=== PATIENT | male | born 1955 | race Caucasian/White ===

== ENCOUNTER → 2016-12-25 | Outpatient (CLI) | payer BC, OTHER ==
--- NOTE | 2016-12-25 10:13 | DI ---
MRI LUMBAR SPINE SCAN WITHOUT IV CONTRAST, 12/25/2016 9:00 AM: Clinical History: Acute right-sided low back pain with right sided sciatica. Previous Exam: None. Technique: Sagittal and axial T2 weighted; sagittal T1 weighted and T2 STIR; and axial PD. The vertebral bodies are of normal height and size. Severe disc space narrowing is present at L1-2, L 2-3, and L5-S1 with mild narrowing at L3-4 and L4-5. There is a grade 2 spondylolisthesis at L5-S1 wi th bilateral pars defects at L5. The cord terminates at T12 and the conus medullaris is normal. The T 11-12 disc space is normal. There is a bulging but not herniated disc without canal or neural foramin al stenosis at T12-L1. There is more prominence on the left side than the right and there is also lef t-sided disc annulus tear. L1-2 and L2-3 both have prominent bulging but not herniated discs without canal or significant neural foraminal stenosis. L3-4 has a mild circumferentially bulging but not her niated disc without canal or neural foraminal stenosis. L4-5 has a grade 1 reverse spondylolisthesis with a bulging but not herniated disc. There is no canal or neural foraminal stenosis. Moderate hyper trophic changes of both apophyseal joints are present. L5-S1 has severe spinal canal stenosis seconda ry to the grade 2 spondylolisthesis and hypertrophic changes of the apophyseal joints and ligamentum flavum as well as the hypertrophic changes at the site of both pars defects. There is no significant neural foraminal stenosis. Readin. Severe spinal canal stenosis at L5-S1 secondary to a bulging but not herniated disc, a grade 2 sp ondylolisthesis, and hypertrophic changes of the ligamentum flavum as well as the apophyseal joints a nd the site of both pars defects. There is no significant neural foraminal stenosis. 2. There are bulging but not herniated discs without canal or significant neural foraminal stenosis from T12 L1-L4 5. There is a grade 1 reverse spondylolisthesis at L4-5. T12-L1 has a disc annulus tea r on the left side with an associated prominent disc bulge. 3. The T11-12 disc spaces normal.
== END ==
LOC: MRI 08:57
PROVIDERS: ATTEND Nurse Practitioner Family
DX: M54.41 Lumbago with sciatica, right side (principal); M47.27 Other spondylosis with radiculopathy, lumbosacral region; M43.17 Spondylolisthesis, lumbosacral region; M47.814 Spondylosis without myelopathy or radiculopathy, thoracic region
CPT/HCPCS: 72148

== ENCOUNTER → 2016-12-28 | Outpatient (CLI) | payer BC ==
--- NOTE | 2016-12-28 10:08 | DI ---
PA /LATERAL CHEST X-RAY, 12/28/2016 9:17 AM : Clinical History: Chest congestion. Previous Exam: None at this facility. There is no acute soft tissue or bony abnormality. Heart size is normal. There is a right middle lobe pneumonia involving primarily the medial segment. No pleural effusion is present. Mediastinal struct ures are normal. There are no pulmonary nodules. Reading: Right middle lobe pneumonia.
== END ==
LOC: MOB RAD 09:33
PROVIDERS: ATTEND Nurse Practitioner Family
DX: R05 Cough (principal); J18.9 Pneumonia, unspecified organism
CPT/HCPCS: 71020

== ENCOUNTER 2017-07-16 11:30 | Inpatient (IN) ==
[~2017-07-16 11:30] MED LIST: BUPivacaine Liposome/PF (Exparel) Inj 20ml vial INFIL ONE; Ketorolac Inj 30 MG, Morphine Inj 5 MG, BUPivacaine Inj 0.25% PF 150 MG SPLASH ONE; Lactated Ringers 1,000 ML PRIMARY IV SCH; Tranexamic Acid 1,000 MG in Sodium Chloride 0.9% 100 ML IV SCH; ceFAZolin Inj 2gm (Premix) 2 GM/50 ML BAG IV ONE
[2017-07-22] MEDS ORDERED: Tranexamic Acid 1,000 MG in Sodium Chloride 0.9% 100 ML IV SCH (06:00)
[2017-07-22] MEDS ORDERED: LIDOCAINE W/ SODIUM BICARB 0.5 ML SYR ONE (06:18)
[2017-07-22] MEDS ORDERED: Lactated Ringers 1,000 ML PRIMARY IV ONE ×4 (06:18→16:04)
[2017-07-22] MEDS ORDERED: ceFAZolin Inj 2gm (Premix) 2 GM/50 ML BAG IV ONE ×2 (06:18→08:45)
[2017-07-22] MEDS ORDERED: HEPARIN 10,000 UNIT/1 ML ONE (07:36)
[2017-07-22] MEDS ORDERED: Gentamicin Inj 40 MG/ML VIAL ONE (07:37)
[2017-07-22] MEDS ORDERED: Sodium Chloride 0.9% 500 ML ONE ×2 (07:41→16:34)
[2017-07-22] MEDS ORDERED: Sodium Chloride 0.9% 2,000 ML ONE (07:41)
[2017-07-22] MEDS ORDERED: BUPivacaine Liposome/PF (Exparel) Inj 20ml vial INFIL ONE ×2 (08:46→11:56)
[2017-07-22 10:31] LABS: BILIRUBIN,URINE NEGATIVE (NEG); CLARITY,URINE CLEAR (CLEAR); COLOR,URINE YELLOW; GLUCOSE, URINE (UA) NEGATIVE (NEG); NITRATE,URINE NEGATIVE (NEG); OCCULT BLOOD,URINE NEGATIVE (NEG); PROTEIN,URINE NEGATIVE (NEG); UROBILINOGEN,URINE 0.2 mg/dL (0.2)
[2017-07-22] MEDS: LIDOCAINE W/ SODIUM BICARB 0.5 ML SYR SUBD ONE (10:37)
[2017-07-22] MEDS: Lactated Ringers 1,000 ML PRIMARY IV SCH ×2 (10:37→19:43)
[2017-07-22] MEDS ORDERED: ceFAZolin Inj 3 GM in Sodium Chloride 0.9% 100 ML IV ONE (11:30)
[2017-07-22] MEDS ORDERED: TRANEXAMIC ACID 1,000 MG / 10 ML VIAL ONE (11:52)
[2017-07-22] MEDS ORDERED: Sodium Chloride 0.9% 200 ML IV ONE (11:53)
[2017-07-22] MEDS ORDERED: Sodium Chloride 0.9% vial 40 ML ONE (11:56)
[2017-07-22] MEDS ORDERED: Ketorolac Inj 30 MG, Morphine Inj 5 MG, BUPivacaine Inj 0.25% PF 150 MG SPLASH ONE ×3 (12:00)
[2017-07-22] MEDS ORDERED: PROPOFOL 10 MG/1 ML (200 MG/20 ML) VIAL IV ONE (12:11)
[2017-07-22] MEDS ORDERED: LIDOCAINE MPF 2% - 5 ML (20 MG/1 ML) ONE (12:11)
[2017-07-22] MEDS ORDERED: MIDAZOLAM 5 MG/1 ML ONE (12:12)
[2017-07-22] MEDS ORDERED: ROCURONIUM 10 MG/1 ML - 5 ML VIAL IVP ONE ×3 (12:12→14:44)
[2017-07-22] MEDS ORDERED: fentaNYL Inj 250 MCG/5 ML VIAL ONE ×2 (12:12→14:16)
[2017-07-22 12:27] LABS: URINE SAMPLE TYPE CLEAN CATCH URINE
[2017-07-22] MEDS ORDERED: Acetaminophen 1000mg Inj 1,000 MG/100 ML VIAL IV ONE (12:35)
[2017-07-22] MEDS ORDERED: ePHEDrine Inj 50 MG/ML AMP ONE (14:18)
[2017-07-22] MEDS ORDERED: SUGAMMADEX SODIUM 200 MG/2 ML VIAL IV ONE (16:04)
[2017-07-22] MEDS ORDERED: KETOROLAC 30 MG/1 ML VIAL ONE (16:04)
[2017-07-22] MEDS ORDERED: HYDROmorphone 2 MG/1 ML ONE (16:23)
--- NOTE | 2017-07-22 16:59 | CRNA.PROGR ---
Anesthesia Time - - Start date: 07/22/17 End date: 07/22/17 - Procedure/Recovery Time Anesthesia : Time In: 12:48 Anesthesia : Time Out: 16:59 Anesthesia : Total Time: 251 - Total Anesthesia Time Total Anesthesia Time (minutes): 251 - Other Weight: 118.841 kg Height: 6 ft Body Mass Index (BMI): 35.5 Physical Status: P2 Anesthesia Type: General Anesthesia : ET
[2017-07-22] MEDS ORDERED: ONDANSETRON 4 MG/2 ML VIAL IVP PRN ×2 (17:00→17:52)
[2017-07-22] MEDS ORDERED: NORMAL SALINE 10 ML SYRINGE FLUSH IVP PRN ×2 (17:00→17:52)
[2017-07-22] MEDS ORDERED: HYDROmorphone 2 MG/1 ML IVP PRN ×2 (17:00→17:52)
--- NOTE | 2017-07-22 17:00 | CRNA.PROGR ---
Anesthesia Recovery Phase I - Post Anesthesia Evaluation Patient's Condition on Arrival in Phase I: Stable Pain Level: 0
[2017-07-22] MEDS ORDERED: ACETAMINOPHEN 325 MG TABLET PO PRN (17:52)
[2017-07-22] MEDS ORDERED: BISACODYL 10 MG SUPPOSITORY RECTAL PRN (17:52)
[2017-07-22] MEDS ORDERED: MAG HYDROX/AL HYDROX/SIMETH 30 ML SUSP PO PRN (17:52)
[2017-07-22] MEDS ORDERED: diphenhydrAMINE 25 MG CAPSULE PO PRN (17:52)
[2017-07-22] MEDS ORDERED: Ondansetron ODT Tab 8 MG TAB PO PRN (17:52)
[2017-07-22] MEDS ORDERED: CALCIUM CARBONATE 500 MG (TUMS) CHEWABLE TABLET PO PRN (17:52)
[2017-07-22] MEDS ORDERED: Prochlorperazine Tab 10 MG TAB PO PRN (17:52)
--- NOTE | 2017-07-22 18:01 | CONSULT ---
Consult Note - Consult Consult Date: 07/22/17 Reason for Consult: PostOp Consulation : Ortho Requesting Physician: Dr. Barboza Primary Care Provider: Michael Sims MD - History of Present Illness History of Present Illness: This is a 61 years old male with medical history significant for history of hypertension, hypothyroidism and osteoarthritis of the right hip who came into the hospital to have surgery and was done today by Dr. Barbzoa the hospitalist service were consulted for management of medical issues. The patient was seen postoperatively he is denying symptoms. There is no chest pain , no shortness of breath, no nausea. No pain. Past Medical History Medical History: 1. Hypertension. 2. Hypothyroidism. 3. History of colonic polyps Surgical History: 1. History of lumbar fusion. 2. History of polypectomy Family History: Reviewed an Not Pertinent Past Social History: Doesn't drink, doesn't smoke, no drugs. Tobacco Use: Never Smoker In the Past 12 Months, Have Used or Abuse Any of the Following Substance: None Alcohol Use: None Review of Systems - Review of Systems All Systems: Reviewed & No Additional Complaints Except as Stated Medication / Allergies Home Medications: Home Medications Medication Instructions Recorded Confirmed Type Levothyroxine Sodium [Synthroid] 200 mcg ORAL QD #90 tab 06/27/16 07/22/17 Rx Lisinopril/Hydrochlorothiazide 1 tab PO QD #90 tab 06/27/16 07/22/17 Rx [Lisinopril-Hctz 20-25 Mg Tab] Allergies/Adverse Reactions: Allergies 3 Allergy/AdvReac Type Severity Reaction Status Date / Time No Known Allergies Allergy Verified 07/22/17 18:15 Exam - Vitals Vital Signs: Vital Signs Temperature 97.1 F Pulse Rate 83 Respiratory Rate 12 Blood Pressure 142/77 Pulse Ox 97 Oxygen Flow Rate 2 liters nasal cannula Height 6 ft Weight 262 lb - General General Appearance: No Acute Distress, Cooperative, Obese - Head Head Exam: Normal Inspection, Atraumatic - Eye Eye Exam: POSITIVE: Normal Appearance - ENT ENT Exam: POSITIVE: Normal Exam - Neck Neck Exam: Normal Inspection - Respiratory Respiratory Exam: POSITIVE: Clear to Auscultation - Bilaterally - Cardiovascular Cardiovascular Exam: POSITIVE: RRR - GI/Abdominal GI/Abdominal Exam: POSITIVE: Normal Bowel Sounds, Non Tender, Non Distended, Soft, No Organomegaly - Rectal Rectal Exam: POSITIVE: Deferred - External Exam: POSITIVE: Deferred - Extremities Additional Extremities Exam Details: No edema dressing applied to the right hip. - Back Back Exam: POSITIVE: Normal Inspection - Neurological Neurological Exam: POSITIVE: Alert, Oriented x 3, CN II-XII Intact, No Facial Droop - Psychiatric Psychiatric Exam: POSITIVE: Normal Affect Assessment and Plan - Patient Problems (1) Status post right hip replacement Current Visit: Yes Status: Acute Comment: Management per Dr. Barboza. Pain medication were written, anti- emetics and for DVT prophylaxis he put him on aspirin. Code(s): Z96.641 - Presence of right artificial hip joint (2) Hypothyroidism Current Visit: Yes Status: Acute Comment: Continue same medications Code(s): E03.9 - Hypothyroidism, unspecified (3) Hypertension Current Visit: Yes Status: Acute Comment: I think we'll hold off on restarting his blood pressure medication for now we'll see what his numbers in the morning and then will decide if we restart his medications. depending on his blood pressure numbers we may just restart the hydrochlorothiazide and hold off on restarting the lisinopril tomorrow. Code(s): I10 - Essential (primary) hypertension
--- NOTE | 2017-07-22 19:07 | ORTHO.PROG ---
Last Taken Vital Signs: Vital Signs - Last Taken Temperature 97.1 F 07/22/17 17:55 Pulse Rate 75 07/22/17 17:55 Respiratory Rate 18 07/22/17 17:55 Blood Pressure 134/76 07/22/17 17:55 Pulse Ox 92 07/22/17 17:55 Subjective: Patient doing well has no right hip pain Objective: Dressing is clean and dry drain has put out 15 mL so far. Suction superficial dressing in place working well. Motor and sensory exam is nonfocal with good motion of the foot and ankle. Radiographs of the hip show a femoral and acetabular component in place with no evidence of active issues leg lengths look good. Vital Signs (24 hrs) Temp Pulse Pulse Pulse Resp BP BP 07/22/17 17:55 97.1 F 80 75 18 134/76 07/22/17 17:35 85 12 136/80 07/22/17 17:25 83 12 142/77 07/22/17 17:15 97.1 F 77 12 120/74 07/22/17 17:10 76 12 132/83 07/22/17 17:00 78 12 124/73 07/22/17 16:55 78 12 120/70 07/22/17 16:50 97.5 F 77 12 123/71 07/22/17 10:46 97 F 66 18 128/82 Pulse Ox 07/22/17 17:55 92 07/22/17 17:35 97 07/22/17 17:25 97 07/22/17 17:15 97 07/22/17 17:10 96 07/22/17 17:00 97 07/22/17 16:55 97 07/22/17 16:50 98 07/22/17 10:46 98 Assessment: Right anterior total hip replacement doing well Plan: DVT prophylaxis Pain control Physical therapy and occupational therapy.
--- NOTE | 2017-07-22 20:45 | DI ---
AP PELVIS AND RIGHT HIP, 07/22/2017 5:16 PM: Clinical History: Status post right total hip replacement. Osteoarthritis. Previous Exam: 06/06/2017. An AP pelvis with AP and lateral views of the replaced hip are submitted. The patient is status post right total hip replacement. The prosthetic joint articulates normally. A drain tube is in place. Reading: Status post right total hip replacement. The prosthetic joint articulates normally.
[2017-07-22] MEDS: HYDROcodone-APAP 7.5 MG-325 MG TABLET PO PRN (20:55)
[2017-07-22] MEDS: DOCUSATE 100 MG CAPSULE PO SCH (20:57)
[2017-07-22] MEDS: ceFAZolin Inj 3 GM in Sodium Chloride 0.9% 100 ML IV SCH (20:57)
[2017-07-23] MEDS: HYDROcodone-APAP 7.5 MG-325 MG TABLET PO PRN ×4 (00:43→20:00)
[2017-07-23] MEDS: ceFAZolin Inj 3 GM in Sodium Chloride 0.9% 100 ML IV SCH (04:58)
[2017-07-23] MEDS: LEVOTHYROXINE 100 MCG TABLET PO SCH (05:00)
[2017-07-23] MEDS: Lactated Ringers 1,000 ML PRIMARY IV SCH ×2 (05:28→06:26)
[2017-07-23 06:03] LABS: Hematocrit [HCT] 36.3 % (42.0-52.0); Hemoglobin [HGB] 12.1 g/dL (14.0-18.0); MEAN CORPUSCULAR HEMOGLOBIN 28.4 PG (27-31); MEAN CORPUSCULAR HGB CONC 33.3 g/dL (33-37); MEAN CORPUSCULAR VOLUME 85.2 FL (80-90); MEAN PLATELET VOLUME 10.3 FL (7.4-12.2); RED BLOOD COUNT 4.26 10^6/uL (4.70-6.10)
[2017-07-23 06:13] LABS: BLOOD UREA NITROGEN 17 mg/dL (7-22); BUN/CREATININE RATIO 21.25 (6-20)
--- NOTE | 2017-07-23 07:18 | CRNA.PROGR ---
Anesthesia Note - Progress Notes Anesthesia Progress Note: Post OP Anesthesia Note Pt is sitting up in bed eating breakfast, awake, alert and oriented. Pt states that pain is very well under control. He denies any residual probles from the general anesthetic. current VS are stable. Vital Signs - Last Taken Temperature 98.0 F 07/23/17 05:00 Pulse Rate 78 07/23/17 05:00 Respiratory Rate 20 07/23/17 05:00 Blood Pressure 114/68 07/23/17 05:00 Pulse Ox 94 07/23/17 05:06
--- NOTE | 2017-07-23 07:52 | PDOC(PROG) ---
Date and Time of Service: 07/23/2017 7:50 AM Interval History: Subjective Pain seemed to be controlled. Denying other symptoms no chest pain, no shortness of breath no nausea. Objective : Data - Labs CBC and BMP: 07/23/17 05:53 07/23/17 05:53 Objective : Exam - General General Appearance: No Acute Distress, Cooperative, Obese - Head Head Exam: Normal Inspection, Atraumatic - Eye Eye Exam: Normal Appearance - ENT ENT Exam: Normal Exam - Neck Neck Exam: Normal Inspection - Respiratory Respiratory Exam: Clear to Auscultation - Bilaterally - Cardiovascular Cardiovascular Exam: RRR - GI/Abdominal GI/Abdominal Exam: Normal Bowel Sounds, Non Tender, Non Distended, Soft - Rectal Rectal Exam: Deferred - External Exam: Deferred - Extremities Additional Extremities Exam Details: Dressing applied to the right hip. Drain in place. - Neurological Neurological Exam: Alert, Oriented x 3, CN II-XII Intact, Moves All Extremities Equally - Psychiatric Psychiatric Exam: Normal Affect Assessment and Plan - Patient Problems (1) Status post right hip replacement Current Visit: Yes Status: Acute Comment: Continue current pain medications. PT and OT today. For DVT prophylaxis he is on aspirin. Code(s): Z96.641 - Presence of right artificial hip joint (2) Hypothyroidism Current Visit: Yes Status: Acute Comment: Same med Code(s): E03.9 - Hypothyroidism, unspecified (3) Hypertension Current Visit: Yes Status: Acute Comment: Blood pressure numbers acceptable I think we'll hold off on restarting his blood pressure medication will see what his numbers during the day and then will decide if we restart the hydrochlorothiazide Code(s): I10 - Essential (primary) hypertension
[2017-07-23] MEDS: ASPIRIN 325 MG EC TABLET PO SCH ×2 (08:41→20:00)
[2017-07-23] MEDS: DOCUSATE 100 MG CAPSULE PO SCH ×2 (08:41→20:00)
[2017-07-23] MEDS ORDERED: HYDROCHLOROTHIAZIDE 25 MG TABLET PO SCH (09:00)
[2017-07-23] MEDS ORDERED: LISINOPRIL 20 MG TABLET PO SCH (09:00)
--- NOTE | 2017-07-23 11:32 | PTI REPORT ---
Thank you for the referral of Yusef Garza. He was seen on 07/23/17 for an inpatient evaluation status post right total hip arthroplasty with anterior approach. SUBJECTIVE: The patient is a 61-year-old male who underwent a right total hip replacement with an anterior approach yesterday. The patient reports that he is doing well. He states that he received his pain medication just prior to our PT evaluation and currently rates his pain as a 3/10 on the verbal analog scale (0= no pain, 10=worst pain). He states it is not really in his hip joint, but more in the muscles in his right thigh. The patient states that on March 19, 2017 he underwent a lumbar fusion and has been doing PT for his low back. He states that his back is doing excellent. The patient lives right outside of [place] with his . He states that he has one step into his house from the garage and his house is on a level surface with only stairs to the basement which he doesn't use very often. Prior to his surgery the patient was independent with all ADLs and was getting around without use of an assistive device. PAST MEDICAL HISTORY: Past medical history can be found in the patient's medical record. OBJECTIVE FINDINGS: General observations: The patient is alert and oriented to setting upon PT arrival. The patient was laying supine in bed. He did agree to participate in therapy. The patient does have a PiCCO line and a Hemovac in place. Bed mobility: The patient was able to move from a supine to seated position after adjusting the head of the bed up in order to sit up with more ease due to his prior lumbar fusion. The patient was able to perform this with min assist x1 to help control the descent of his right lower extremity. Once sitting edge of bed the patient denied any lightheadedness or dizziness and stated that he felt pretty good. Activities of daily living: The patient required assistance for donning socks due to his no bending precautions from his lumbar fusion. Transfers: The patient's walker was adjusted to appropriate height and the patient was able to perform a sit to stand transfer with raising the bed up and contact guard assist x1. The patient denied any lightheadedness or dizziness when standing. Balance: The patient demonstrated fair initial standing balance with hand hold assist x2 on the walker. Ambulation: the patient was able to take a few steps. He did have difficulties with lifting his right lower extremity up first with walking, but as we continued to walk the patient did do better with this. He did require contact guar assist x1 for safety and he did utilize a front wheeled walker as this was what he had brought in to therapy. The patient was able to ambulate 150 feet with contact guard assist x1 and the front wheeled walker. The more the patient ambulated the better his gait pattern became. He was able to lift his right lower extremity with a little bit more ease and he did demonstrate safety with ambulation with the front wheeled walker. ASSESSMENT: The patient has good rehab potential. Problem List: Pain in the right hip Decreased passive and active range of motion of the right hip Decreased strength of the right hip Short-Term Goals: To be met by discharge from inpatient: Patient will be able to transfer from bed to stand safely and independently. Patient will be able to ambulate at least 150 feet with walker and weight- bearing as tolerated on the right. Patient will be able to ascend and descend at least 5 stairs with front wheeled walker and weight-bearing as tolerated on the right and do so safely. Long-Term Goals: To be met following discharge from inpatient: Patient may be seen by outpatient physical therapy. TREATMENT PLAN: Patient will be seen B.I.D during the week and one time per day over the weekend as an inpatient for transfer training, gait training, and stair training. INITIAL TREATMENT: Treatment today consisted of the initial evaluation followed by one unit of functional activity. Following treatment the patient was left upright in chair with call light within reach and chair alarm set. MTDD
[2017-07-23] MEDS: LIDOCAINE W/ SODIUM BICARB 0.5 ML SYR SUBD ONE (13:55)
--- NOTE | 2017-07-23 16:13 | PT.PROG ---
Progress Note Progress Note: Patient refused therapy this afternoon due to elevated temperature and not feeling well.
--- NOTE | 2017-07-23 17:15 | ORTHO.OP ---
- - -: See Dictated Operative Report Procedure Codes - Hip Procedures Primary Hip Procedure: 00854 : HUSSAIN ([place] walker assisted)
--- NOTE | 2017-07-23 17:22 | ORTHO.PROG ---
Last Taken Vital Signs: Vital Signs - Last Taken Temperature 100 F H 07/23/17 17:12 Pulse Rate 100 07/23/17 17:00 Respiratory Rate 18 07/23/17 17:00 Blood Pressure 111/77 07/23/17 17:00 Pulse Ox 93 07/23/17 17:00 Subjective: Patient notes pain has increased since yesterday was very active in therapy this morning and feels very tired and fatigued this afternoon Objective: Drains are in place a deep drain was removed only 10 mL output. Madden also removed patient notes some burning and other symptoms associated without. Laboratory Results 07/23/17 07/23/17 Range/Units 05:53 05:53 WBC 13.81 H (4.8-10.8) 10^3/uL RBC 4.26 L (4.70-6.10) 10^6/uL Hgb 12.1 L (14.0-18.0) g/dL Hct 36.3 L (42.0-52.0) % MCV 85.2 (80-90) FL MCH 28.4 (27-31) PG MCHC 33.3 (33-37) g/dL RDW Std Deviation 45.9 (39-50) fL RDW Coeff of Jf 15.1 H (11.5-14.5) % Plt Count 282 (140-350) 10*3/uL MPV 10.3 (7.4-12.2) FL Sodium 137 (135-145) meq/L Potassium 4.1 (3.8-5.2) meq/L Chloride 105 (98-112) meq/L Carbon Dioxide 22 L (23-33) meq/L Anion Gap 10 (5-20) BUN 17 (7-22) mg/dL Creatinine 0.8 (0.70-1.50) mg/dL Estimated GFR > 60 (>60 ml/min/1.73m(2)) BUN/Creatinine Ratio 21.25 H (6-20) Glucose 92 (78-110) mg/dL Calculated Osmolality 285.0 (267-292) mOsm/kg Calcium 8.4 L (8.7-10.7) mg/dL Intake and Output - 8hrs 07/22/17 07/23/17 07/23/17 07/23/17 21:59 05:59 13:59 21:59 Intake: IV 3750 / 3750 1346 / 1346 Intake Oral Amount 500 / 500 800 / 800 1660 / 1660 800 / 800 Lunch 360 / 360 OrthoPat 75 / 75 Output: Output, Drainage Amount 15 40 / 40 10 / 10 Right Lower Lateral Hip 15 40 / 40 10 / 10 Output, Urinary Catheter 50 / 50 525 / 525 125 / 125 Amount Output, Urine Amount 250 / 250 75 / 75 250 / 250 Output, Estimated Blood 400 / 400 Loss Amount Other: Percent Meal Consumed Dinner 75% 100% Lunch 100% Drains right hip Hemovac Negative Pressure Drain Weight 118.841 kg 124.829 kg Weight Measurement Method Standing Scale Standing Scale Vital Signs (24 hrs) Temp Pulse Pulse Pulse Resp BP BP 07/23/17 17:12 100 F H 07/23/17 17:00 100 F H 100 18 111/77 07/23/17 11:07 99.5 F 87 18 07/23/17 07:42 98.4 F 90 16 07/23/17 05:06 07/23/17 05:00 98.0 F 78 20 07/23/17 00:44 97.5 F 75 16 07/22/17 20:30 97.0 F 74 18 07/22/17 19:40 72 18 07/22/17 19:00 18 07/22/17 18:45 97.1 F 77 18 07/22/17 18:30 78 18 07/22/17 18:10 97.2 F 82 18 07/22/17 17:55 97.1 F 80 75 18 07/22/17 17:35 85 12 136/80 07/22/17 17:25 83 12 142/77 BP Pulse Ox 07/23/17 17:12 07/23/17 17:00 93 07/23/17 11:07 139/70 96 07/23/17 07:42 129/75 94 07/23/17 05:06 94 07/23/17 05:00 114/68 93 07/23/17 00:44 107/65 95 07/22/17 20:30 119/76 96 07/22/17 19:40 124/73 95 07/22/17 19:00 07/22/17 18:45 125/76 95 07/22/17 18:30 135/72 94 07/22/17 18:10 142/88 94 07/22/17 17:55 134/76 92 07/22/17 17:35 97 07/22/17 17:25 97 Assessment: Right total hip replacement Plan: Recommend incentive spirometry since patient has been having a low-grade fever. Also continue with pneumatic sequential devices ambulation and aspirin. Ice to the leg. Pain control
[2017-07-24] MEDS: HYDROcodone-APAP 7.5 MG-325 MG TABLET PO PRN ×5 (00:43→19:05)
[2017-07-24] MEDS: LEVOTHYROXINE 100 MCG TABLET PO SCH (05:03)
[2017-07-24 06:35] LABS: Hematocrit [HCT] 34.4 % (42.0-52.0); Hemoglobin [HGB] 11.5 g/dL (14.0-18.0); MEAN CORPUSCULAR HEMOGLOBIN 28.7 PG (27-31); MEAN CORPUSCULAR HGB CONC 33.4 g/dL (33-37); MEAN CORPUSCULAR VOLUME 85.8 FL (80-90); MEAN PLATELET VOLUME 10.5 FL (7.4-12.2); RED BLOOD COUNT 4.01 10^6/uL (4.70-6.10)
[2017-07-24 06:42] LABS: BLOOD UREA NITROGEN 12 mg/dL (7-22)
[2017-07-24] MEDS ORDERED: HYDROCHLOROTHIAZIDE 25 MG TABLET PO SCH (07:00)
--- NOTE | 2017-07-24 08:16 | PDOC(PROG) ---
Date and Time of Service: 07/24/2017 8:16 AM Interval History: Subjective Patient he said feels a lot better today compared to yesterday. Yesterday had the low-grade temperature and that's resolved. He also received the 90 Dilaudid he was sleeping the whole day. Today he is much better. He is denying cough, shortness of breath, nausea, no dysuria no diarrhea. Pain is controlled. Objective : Data - Labs CBC and BMP: 07/24/17 05:50 07/24/17 05:50 Objective : Exam - General General Appearance: No Acute Distress, Cooperative - Head Head Exam: Normal Inspection, Atraumatic - Eye Eye Exam: Normal Appearance - ENT ENT Exam: Normal Exam - Neck Neck Exam: Normal Inspection - Respiratory Respiratory Exam: Clear to Auscultation - Bilaterally - Cardiovascular Cardiovascular Exam: RRR - GI/Abdominal GI/Abdominal Exam: Normal Bowel Sounds, Non Tender, Non Distended, Soft - Rectal Rectal Exam: Deferred - External Exam: Deferred - Extremities Extremities Exam: Normal Inspection - Back Back Exam: Normal Inspection - Neurological Neurological Exam: Alert, Oriented x 3, Speech Intact / Clear, Moves All Extremities Equally - Psychiatric Psychiatric Exam: Normal Affect Assessment and Plan - Patient Problems (1) Status post right hip replacement Current Visit: Yes Status: Acute Comment: Continue PT and OT. For DVT prophylaxis is on aspirin. Code(s): Z96.641 - Presence of right artificial hip joint (2) Hypothyroidism Current Visit: Yes Status: Acute Comment: Same meds Code(s): E03.9 - Hypothyroidism, unspecified (3) Hypertension Current Visit: Yes Status: Acute Comment: Continue holding his blood pressure medication for another day. Code(s): I10 - Essential (primary) hypertension (4) Leukocytosis Current Visit: Yes Status: Acute Comment: Unclear reason may be reactionary, there is no evidence of infection. He is feeling better today and denying symptoms, no fever today, the fever yesterday was just low-grade. If he has another episode of fever I think will do blood culture, UA and chest x-ray. For now we will watch and repeat his labs in the morning. Code(s): D72.829 - Elevated white blood cell count, unspecified
[2017-07-24] MEDS: DOCUSATE 100 MG CAPSULE PO SCH ×3 (08:42→20:44)
[2017-07-24] MEDS: ASPIRIN 325 MG EC TABLET PO SCH ×3 (08:42→20:44)
--- NOTE | 2017-07-24 16:26 | PT.PROG ---
Progress Note Progress Note: S. Patient stated that he is feeling much better this morning compared to yesterday. O. Patient ambulated 175 feet to the therapy gym where he had heat and performed mat table exercises in the form of; heel slides, quad sets, glut sets , ankle pumps, short arc quads, long arc quads, heel toe raises and sit to stands. Patient performed box taps all x 10 then used the nu-step x 10 minutes. A. Patient tolerated therapy well this morning, he was able to perform all exercises with no complaint of pain or added discomfort. Patient would continue to benefit from skilled therapy at this time. p. Continue pOC.
--- NOTE | 2017-07-24 17:25 | PT.PROG ---
Progress Note Progress Note: S: Pt. stated he is feeling well and is ready to attempt stairs. O: Pt. AMB 175ft. to PT clinic with FWW and SBA. In the clinic the pt. completed heat followed by therapeutic exercise of long arc quads, hamstring curls, theraband butterflies, bridges, sit to stands, step ups and tandem stance. A: Pt. tolerated increased workload well today. Pt. succeeded with step ups, leading with the uninvolved leg. Pt. completed #3 box, which is the same size as the step they have at home. P: Continue POC. Kermit Haywood, SPT [facility], PT
[2017-07-24 18:04] LABS: BILIRUBIN,URINE NEGATIVE (NEG); CLARITY,URINE CLEAR (CLEAR); COLOR,URINE YELLOW (Y); GLUCOSE, URINE (UA) NEGATIVE (NEG); NITRATE,URINE NEGATIVE (NEG); OCCULT BLOOD,URINE MODERATE (NEG); PROTEIN,URINE 30 mg/dl (NEG); UROBILINOGEN,URINE 0.2 EU/dL (0.2)
--- NOTE | 2017-07-24 18:10 | ORTHO.PROG ---
Last Taken Vital Signs: Vital Signs - Last Taken Temperature 101.1 F H 07/24/17 17:00 Pulse Rate 94 07/24/17 17:00 Respiratory Rate 18 07/24/17 17:00 Blood Pressure 122/81 07/24/17 17:00 Pulse Ox 93 07/24/17 17:00 Subjective: Patient states he feels good and had good therapy sessions both in the morning and afternoon. Objective: Patient's with dressing in place and no active issues. Patient with drain removed yesterday no active bleeding. Patient denies any calf popliteal adductor hiatus pain. No marked swelling or edema distally. Laboratory Results 07/24/17 07/24/17 Range/Units 05:50 05:50 WBC 17.22 H (4.8-10.8) 10^3/uL RBC 4.01 L (4.70-6.10) 10^6/uL Hgb 11.5 L (14.0-18.0) g/dL Hct 34.4 L (42.0-52.0) % MCV 85.8 (80-90) FL MCH 28.7 (27-31) PG MCHC 33.4 (33-37) g/dL RDW Std Deviation 46.6 (39-50) fL RDW Coeff of Jf 15.2 H (11.5-14.5) % Plt Count 252 (140-350) 10*3/uL MPV 10.5 (7.4-12.2) FL Sodium 137 (135-145) meq/L Potassium 4.0 (3.8-5.2) meq/L Chloride 104 (98-112) meq/L Carbon Dioxide 23 (23-33) meq/L Anion Gap 10 (5-20) BUN 12 (7-22) mg/dL Creatinine 0.8 (0.70-1.50) mg/dL Estimated GFR > 60 (>60 ml/min/1.73m(2)) BUN/Creatinine Ratio 15.00 (6-20) Glucose 102 (78-110) mg/dL Calculated Osmolality 283.0 (267-292) mOsm/kg Calcium 8.5 L (8.7-10.7) mg/dL Intake and Output - 8hrs 07/23/17 07/24/17 07/24/17 07/24/17 21:59 05:59 13:59 21:59 Intake: Intake Oral Amount 1200 / 1200 500 / 500 1180 / 1180 950 / 950 Breakfast 240 / 240 Dinner 200 / 200 200 / 200 Lunch 240 / 240 Output: Output, Urine Amount 1150 / 1150 800 / 800 200 / 200 250 / 250 Other: Percent Meal Consumed Breakfast 100% Dinner 100% 100% Lunch 100% Number of Voids 1 Weight 110.314 kg Weight Measurement Method Standing Scale Vital Signs (24 hrs) Temp Pulse Pulse Resp BP Pulse Ox 07/24/17 17:00 101.1 F H 94 18 122/81 93 07/24/17 13:00 99.5 F 95 18 137/75 92 07/24/17 08:24 98.7 F 83 16 126/67 94 07/24/17 06:45 88 82 20 07/24/17 06:41 20 07/24/17 05:00 97.2 F 82 20 113/68 94 07/24/17 00:50 98.8 F 87 20 121/80 92 07/23/17 20:32 98.8 F 91 20 123/66 91 07/23/17 19:00 18 07/23/17 18:59 88 Assessment: Patient with right total hip replacement with fever of unknown origin was having a lot of clinical symptoms with Madden question source of early fever which started yesterday about 24 hours from surgery do not suspect deep infection. Plan: Continue with pain control Continue with physical therapy and occupational therapy. We will proceed with urinalysis in question possible other workup is fevers persist.
[2017-07-24 18:11] LABS: URINE SAMPLE TYPE CLEAN CATCH URINE
[2017-07-24 18:14] LABS: BACTERIA,URINE RARE; SQUAMOUS EPITHELIAL CELL,UR RARE
--- NOTE | 2017-07-24 18:25 | DI ---
PA /LATERAL CHEST X-RAY, 07/24/2017 5:19 PM : Clinical History: Fever. Previous Exam: 12/28/2016. There is no acute soft tissue or bony abnormality. Heart size is normal. There is no acute infiltrate or effusion. The right middle lobe pneumonia present on the previous exam has resolved without seque lae. Mediastinal structures are normal. On the PA film in the right mid clavicular line and overlappi ng the inferior half of the sixth rib posteriorly is a 15 mm noncalcified density. This is not seen o n the lateral film. In retrospect, it was present before but was obscured by overlapping anterior and posterior ribs. Readin. There is no acute infiltrate or effusion. 2. There is a 15 mm noncalcified nodule located in the right upper lung field in the mid clavicular line and overlapping the inferior half of the posterior portion of the right sixth rib. This was pres ent in retrospect on the prior exam but has not changed.
[2017-07-24] MEDS: IBUPROFEN 400 MG TABLET PO PRN (19:04)
[2017-07-24] MEDS: Ertapenem Inj 1 GM in Sodium Chloride 0.9% 100 ML IV SCH (19:05)
[2017-07-24] MEDS: BISACODYL 5 MG TABLET PO PRN (19:05)
--- NOTE | 2017-07-24 19:41 | PDOC(PROG) ---
General Note Progress Note: 07/24/2017 7:38 PM, patient started to have fever of 101, I did check on him he still does not have symptoms no dysuria, did not have a bowel movement yet, no cough no shortness of breath still feels well. Except he is having fever. The source is not clearl did send a UA which showed some blood, did send blood culture and the did do a chest x-ray which showed pulmonary nodule but no evidence of infiltrate, nose no significant swelling in the legs. I think will give him a dose of antibiotic with Invanz because of elevated white count and will wait for blood culture. He did have a pneumonia back in December so I think will send for C. difficile and she had a bowel movement. Patient Problems - Patient Problem List (1) Status post right hip replacement Current Visit: Yes Status: Acute Code(s): Z96.641 - Presence of right artificial hip joint Category: Medical (2) Hypothyroidism Current Visit: Yes Status: Acute Code(s): E03.9 - Hypothyroidism, unspecified Category: Medical (3) Hypertension Current Visit: Yes Status: Acute Code(s): I10 - Essential (primary) hypertension Category: Medical (4) Leukocytosis Current Visit: Yes Status: Acute Code(s): D72.829 - Elevated white blood cell count, unspecified Category: Medical
[2017-07-25] MEDS: HYDROcodone-APAP 7.5 MG-325 MG TABLET PO PRN ×5 (00:02→19:00)
[2017-07-25] MEDS: BISACODYL 5 MG TABLET PO PRN (04:19)
[2017-07-25] MEDS: LEVOTHYROXINE 100 MCG TABLET PO SCH ×2 (04:19→04:56)
[2017-07-25 07:00] LABS: Hematocrit [HCT] 33.3 % (42.0-52.0); Hemoglobin [HGB] 11.1 g/dL (14.0-18.0); MEAN CORPUSCULAR HEMOGLOBIN 28.8 PG (27-31); MEAN CORPUSCULAR HGB CONC 33.3 g/dL (33-37); MEAN CORPUSCULAR VOLUME 86.5 FL (80-90); MEAN PLATELET VOLUME 10.1 FL (7.4-12.2); RED BLOOD COUNT 3.85 10^6/uL (4.70-6.10)
[2017-07-25 07:22] LABS: BLOOD UREA NITROGEN 11 mg/dL (7-22); BUN/CREATININE RATIO 13.75 (6-20)
[2017-07-25 08:28] LABS: BILIRUBIN,URINE NEGATIVE (NEG); CLARITY,URINE CLEAR (CLEAR); COLOR,URINE YELLOW; GLUCOSE, URINE (UA) NEGATIVE (NEG); NITRATE,URINE NEGATIVE (NEG); OCCULT BLOOD,URINE NEGATIVE (NEG); PH,URINE 5.5 (5.0-8.5); PROTEIN,URINE 30 mg/dl (NEG); UROBILINOGEN,URINE 0.2 mg/dL (0.2)
[2017-07-25 08:32] LABS: URINE SAMPLE TYPE CLEAN CATCH URINE
[2017-07-25] MEDS: DOCUSATE 100 MG CAPSULE PO SCH ×2 (08:32→20:49)
[2017-07-25] MEDS: ASPIRIN 325 MG EC TABLET PO SCH ×2 (08:32→20:49)
--- NOTE | 2017-07-25 09:25 | PDOC(PROG) ---
Date and Time of Service: 07/25/2017 9:22 AM Interval History: Subjective Patient's feel better, last night he said the he broke the fever and had some sweating and feels better today. Denying symptoms. Still no cough, no shortness of breath, no significant pain in the hip he is taking less pain medication, no dysuria. Objective : Data - Labs CBC and BMP: 07/25/17 06:35 07/25/17 06:35 Objective : Exam - General General Appearance: No Acute Distress, Cooperative - Head Head Exam: Normal Inspection - Eye Eye Exam: Normal Appearance - ENT ENT Exam: Normal Exam - Neck Neck Exam: Normal Inspection - Respiratory Respiratory Exam: Clear to Auscultation - Bilaterally - Cardiovascular Cardiovascular Exam: RRR - GI/Abdominal GI/Abdominal Exam: Normal Bowel Sounds, Non Tender, Non Distended, Soft - Rectal Rectal Exam: Deferred - External Exam: Deferred Exam: Deferred - Extremities Additional Extremities Exam Details: Dressing applied to the right hip. Slight edema in the right leg. Skin around the dressing looks normal. - Back Back Exam: Normal Inspection - Neurological Neurological Exam: Alert, Oriented x 3, CN II-XII Intact - Psychiatric Psychiatric Exam: Normal Affect Assessment and Plan - Patient Problems (1) Status post right hip replacement Current Visit: Yes Status: Acute Comment: Continue PT and OT continue current pain medications. Code(s): Z96.641 - Presence of right artificial hip joint (2) Hypothyroidism Current Visit: Yes Status: Acute Comment: Same med Code(s): E03.9 - Hypothyroidism, unspecified (3) Hypertension Current Visit: Yes Status: Acute Comment: Blood pressure still acceptable continue holding his blood pressure medications Code(s): I10 - Essential (primary) hypertension (4) Leukocytosis Current Visit: Yes Status: Acute Comment: In the afternoon he had a fever of 101 we took blood culture, UA and a chest x-ray. I did started him on Invanz his white count is better today. I think we'll continue with the Invanz until the blood culture is negative. to Complete the workup of the fever will order ultrasound of his legs. I think if the cultures remain negative and the fever is gone then will DC antibiotics. Code(s): D72.829 - Elevated white blood cell count, unspecified (5) Nodule of right lung Current Visit: Yes Status: Acute Comment: There is a nodule in the right lung that was found on x-ray apparently was present also on previous x-ray which was not noticed before this need to be followed up later on as an outpatient Code(s): R91.1 - Solitary pulmonary nodule
--- NOTE | 2017-07-25 10:54 | DI ---
VENOUS DOPPLER ULTRASOUND OF BOTH LOWER EXTREMITIES, 07/25/2017 10:28 AM: Clinical History: Fever. Post operative status for total hip replacement. Right leg swelling. Previous Exam: None at this facility. Technique: 2D real-time imaging is supplemented with color Doppler ultrasound. Compression and augmen tation maneuvers were performed. The deep venous system from the groin to the popliteal fossa for both legs is normal. The greater sap henous veins are also normal. There is some mild edema of the subcutaneous fat in the right lower leg . Reading: Negative venous Doppler ultrasound of both lower extremities for deep vein thrombosis.
--- NOTE | 2017-07-25 11:55 | PT.PROG ---
Progress Note Progress Note: S. Patient stated that he is feeling good. He reports that he had an ultrasound earlier this morning. O. patient ambulated 175 feet to the therapy gym where he used the nu-step x 10 minutes then performed exercises in the form of; heel slides, quad sets, ankle pumps, hip abduction/adduction, long arc quads, heel toe raises, sit to stands, box step ups (box #3) all x 10 bilaterally. Patient ambulated 175 feet back to his room where he was left in his chair with alarm and call light. A. Patient tolerated therapy well this morning, He was able to perform all exercises with no exacerbation of pain. Patient would continue to benefit from skilled therapy at this time. P. Continue POC.
[2017-07-25] MEDS ORDERED: POLYETHYLENE GLYCOL 3350 17 GM POWDER PO ONE (13:54)
--- NOTE | 2017-07-25 15:48 | OT PM DAY ---
Diagnosis : Right Total Knee Arthroplasty PM - Inpatient Observation S: Occupational Therapy did not go through with a full evaluation after talking with the patient. The patient just recently had back surgery and has currently been using a wharf helper, sock aide, bath sponge, and shoe horn. The patient's was present during the session and they do have a high rise toilet seat as well as a shower chair and the patient was used to using all of these pieces of equipment prior to his hip surgery. O: The therapist did observe the patient complete functional transfers with stand by assist. He was able to bend half way down to the burnette area. The therapist did explain how to use the equipment. The patient was also educated on safety with use of walker in his home, especially with reaching tasks. A: The patient is doing well and he does not require any further occupational therapy. P: Patient will be discharged from occupational therapy at this time. ADRIEL
--- NOTE | 2017-07-25 15:59 | PT.PROG ---
Progress Note Progress Note: S: Pt. stated he is feeling well today and is ready to return home tomorrow, if his bloodwork comes back ok. O: Pt. AMB 175ft. to PT clinic with FWW and SBA. In the clinic the pt. completed heat followed by therapeutic exercise of long arc quads, hamstring curls, theraband butterflies, bridges, sit to stands, theraband core rotations, theraband rows, step ups, airex balancing, standing hip extensions, and high/ low table scoots. The pt. then completed ice for 15 minutes. A: Pt. tolerated exercise well today, his core and back tolerated increased core work. Pt. wanted ice to decrease soreness after treatment. His function is adequate from a PT standpoint, so pt. is clear to return home. P: Continue POC until discharge. Kermit Haywood, SPT [facility], PT
--- NOTE | 2017-07-25 17:34 | ORTHO.PROG ---
Last Taken Vital Signs: Vital Signs - Last Taken Temperature 99.3 F 07/25/17 17:00 Pulse Rate 89 07/25/17 17:00 Respiratory Rate 18 07/25/17 17:00 Blood Pressure 143/71 07/25/17 17:00 Pulse Ox 95 07/25/17 17:00 Subjective: Patient doing well controlled on oral medication Objective: Right leg with very small amount swelling no marked calf pain, popliteal, adductor hiatus or thigh pain. Dressing is in place clean and dry. Motor and sensory exam is nonfocal. Laboratory Results 07/22/17 07/24/17 07/25/17 Range/Units 10:49 17:20 06:35 WBC 15.32 H (4.8-10.8) 10^3/uL RBC 3.85 L (4.70-6.10) 10^6/uL Hgb 11.1 L (14.0-18.0) g/dL Hct 33.3 L (42.0-52.0) % MCV 86.5 (80-90) FL MCH 28.8 (27-31) PG MCHC 33.3 (33-37) g/dL RDW Std Deviation 47.4 (39-50) fL RDW Coeff of Jf 15.3 H (11.5-14.5) % Plt Count 244 (140-350) 10*3/uL MPV 10.1 (7.4-12.2) FL ESR 64 H (0-15) MM/HR Sodium (135-145) meq/L Potassium (3.8-5.2) meq/L Chloride (98-112) meq/L Carbon Dioxide (23-33) meq/L Anion Gap (5-20) BUN (7-22) mg/dL Creatinine (0.70-1.50) mg/dL Estimated GFR (>60 ml/min/1.73m(2)) BUN/Creatinine Ratio (6-20) Glucose (78-110) mg/dL Calculated Osmolality (267-292) mOsm/kg Calcium (8.7-10.7) mg/dL C-Reactive Protein (0.0-0.9) mg/dL Ur Collection Type Clean catch urine Urine Color Yellow (Y) Urine Clarity Clear (CLEAR) Urine pH 6.0 (5.0-8.5) Ur Specific [place] 1.015 (1.005-1.030) Urine Protein 30 A (NEG) mg/dl Urine Glucose (UA) Negative (NEG) mg/dL Urine Ketones Trace A (NEG) Urine Occult Blood Moderate H (NEG) Urine Nitrate Negative (NEG) Urine Bilirubin Negative (NEG) Urine Urobilinogen 0.2 (0.2) EU/dL Ur Leukocyte Esterase Negative (NEG) Urine RBC 8-10 (NONE) /hpf Urine WBC 1-3 (NONE) Ur Squamous Epith Cells Rare (NONE) Ur Renal Epithelial Cell None (NONE) Urine Crystals None Urine Bacteria Rare (NONE) Urine Casts None (NONE) Urine Mucus None (NONE) Urine Trichomonas None (NONE) Urine Yeast None (NONE) Ur Culture Indicated? Culture not set Crossmatch See Detail 07/25/17 07/25/17 Range/Units 06:35 08:21 WBC (4.8-10.8) 10^3/uL RBC (4.70-6.10) 10^6/uL Hgb (14.0-18.0) g/dL Hct (42.0-52.0) % MCV (80-90) FL MCH (27-31) PG MCHC (33-37) g/dL RDW Std Deviation (39-50) fL RDW Coeff of Jf (11.5-14.5) % Plt Count (140-350) 10*3/uL MPV (7.4-12.2) FL ESR (0-15) MM/HR Sodium 139 (135-145) meq/L Potassium 4.0 (3.8-5.2) meq/L Chloride 105 (98-112) meq/L Carbon Dioxide 23 (23-33) meq/L Anion Gap 11 (5-20) BUN 11 (7-22) mg/dL Creatinine 0.8 (0.70-1.50) mg/dL Estimated GFR > 60 (>60 ml/min/1.73m(2)) BUN/Creatinine Ratio 13.75 (6-20) Glucose 94 (78-110) mg/dL Calculated Osmolality 286.0 (267-292) mOsm/kg Calcium 8.4 L (8.7-10.7) mg/dL C-Reactive Protein 22.7 H (0.0-0.9) mg/dL Ur Collection Type Clean catch urine Urine Color Yellow (Y) Urine Clarity Clear (CLEAR) Urine pH 5.5 (5.0-8.5) Ur Specific [place] 1.020 (1.005-1.030) Urine Protein 30 (NEG) mg/dl Urine Glucose (UA) Negative (NEG) mg/dL Urine Ketones Trace (NEG) Urine Occult Blood Negative (NEG) Urine Nitrate Negative (NEG) Urine Bilirubin Negative (NEG) Urine Urobilinogen 0.2 (0.2) EU/dL Ur Leukocyte Esterase Negative (NEG) Urine RBC None (NONE) /hpf Urine WBC 1-3 (NONE) Ur Squamous Epith Cells None (NONE) Ur Renal Epithelial Cell None (NONE) Urine Crystals None Urine Bacteria None (NONE) Urine Casts None (NONE) Urine Mucus Moderate (NONE) Urine Trichomonas None (NONE) Urine Yeast None (NONE) Ur Culture Indicated? Crossmatch Vital Signs (24 hrs) Temp Pulse Pulse Resp BP BP Pulse Ox 07/25/17 17:00 99.3 F 89 18 143/71 95 07/25/17 12:47 99.1 F 89 18 125/70 95 07/25/17 08:11 98.6 F 84 18 125/71 92 07/25/17 04:39 98.7 F 76 16 107/71 92 07/25/17 00:02 98.6 F 77 18 107/72 92 07/24/17 20:32 99.6 F 95 16 125/74 93 07/24/17 19:00 88 95 Assessment: Right total hip replacement overall doing well but still with fever of unknown origin seems to be improving white count seems to be going down. We get a baseline sedimentation rate and C-reactive protein which were elevated as we would expect Plan: Continue with pain medication as needed on IV available. Occupation and physical therapy available and to continue. DVT prophylaxis. Patient with ultrasound of lower extremities today which were negative no evidence of deep vein thromboses.
[2017-07-25] MEDS: Ertapenem Inj 1 GM in Sodium Chloride 0.9% 100 ML IV SCH (18:59)
[2017-07-26] MEDS: IBUPROFEN 400 MG TABLET PO PRN (00:20)
[2017-07-26] MEDS: HYDROcodone-APAP 7.5 MG-325 MG TABLET PO PRN ×3 (00:21→10:15)
[2017-07-26 04:14] VITALS: RESP 20
[2017-07-26] MEDS: LEVOTHYROXINE 100 MCG TABLET PO SCH (05:26)
[2017-07-26 07:48] LABS: Hematocrit [HCT] 32.6 % (42.0-52.0); MEAN CORPUSCULAR VOLUME 88 FL (80-90); RED BLOOD COUNT 3.7 10^6/uL (4.70-6.10)
[2017-07-26 07:49] LABS: MEAN CORPUSCULAR HEMOGLOBIN 29.6 PG (27-31); MEAN CORPUSCULAR HGB CONC 33.6 g/dL (33-37); MEAN PLATELET VOLUME 8.1 FL (7.4-12.2)
[2017-07-26 07:50] LABS: BAND NEUTROPHILS % 0 % (0-10); BASOPHILS % (MANUAL) 1 % (0-1); EOSINOPHILS % (MANUAL) 2 % (0-8); MONOCYTES % (MANUAL) 7 % (0-12); NEUTROPHILS % (MANUAL) 71 % (50-80); PLATELET MORPHOLOGY COMMENT NORMAL MORPHOLOGY (NORM); RBC MORPHOLOGY COMMENT NORMAL MORPHOLOGY (NORM); WBC MORPHOLOGY COMMENT NORMAL MORPHOLOGY (NORM)
[2017-07-26] MEDS: ASPIRIN 325 MG EC TABLET PO SCH (08:24)
[2017-07-26] MEDS: DOCUSATE 100 MG CAPSULE PO SCH (08:24)
[2017-07-26] MEDS ORDERED: POLYETHYLENE GLYCOL 3350 17 GM POWDER PO SCH (09:00)
[2017-07-26 13:10] VITALS: BP 121/67; TEMP 98; O2SAT 92
--- NOTE | 2017-07-26 13:49 | DI ---
CT ANGIOGRAM OF THE CHEST, 07/26/2017 11:25 AM : Clinical History: Postop fever. Previous Exam: None at this facility. Scans are performed from the base of the neck to the lower lung bases following IV administration of 75 mL of Isovue 370 was injected at a rate of 3.8 mL per second. Proprietary automated bolus tracking software was used to verify the timing of the injection. The base of the neck and thoracic inlet are normal. There are no abnormal axillary, supraclavicular, mediastinal, or hilar nodes. The heart is normal. Coronary artery calcifications are present in the p roximal and middle thirds of the LAD. There is pulmonary arterial hypertension. Because of scan artif acts, evaluation of the vessels of the smaller third and all of the fourth order branches cannot be p erformed for determination of pulmonary embolism. No emboli are seen in the second and larger third o rder branches. No obvious chronic lung disease is identified to explain the pulmonary arterial hypert ension. There is a 14 mm noncalcified nodule in the apical segment of the right upper lobe. No acute infiltrate or effusion is present. Both adrenal glands and the visualized portions of the pancreas an d spleen are normal. There is diffuse fatty infiltration of the liver. READIN. Technically limited study because of the scan artifacts from the contrast injection. No pulmonary emboli are seen in the second and the larger third order branches to both lungs. Evaluation of the s maller third and fourth order branches cannot be performed. There is pulmonary arterial hypertension without evidence of underlying chronic lung disease. 2. There is no acute infiltrate or effusion. There is a 14 mm noncalcified nodule in the right upper lobe, probably in the more proximal portion of the apical segment. 3. Coronary artery disease manifested by calcifications of the LAD. 4. Diffuse fatty infiltration of the liver.
--- NOTE | 2017-07-26 13:59 | ORTHO.PROG ---
Last Taken Vital Signs: Vital Signs - Last Taken Temperature 98.0 F 07/26/17 13:00 Pulse Rate 78 07/26/17 13:00 Respiratory Rate 20 07/26/17 13:00 Blood Pressure 121/67 07/26/17 13:00 Pulse Ox 92 07/26/17 13:00 Subjective: Patient doing well no pain and discomfort. Right hip doing well Objective: Dressing is in place suction component toPREVENA dressing working well. Laboratory Results 07/22/17 07/26/17 Range/Units 10:49 05:51 WBC 13.3 H (4.8-10.8) 10^3/uL RBC 3.7 L (4.70-6.10) 10^6/uL Hgb 11.0 L (14.0-18.0) g/dL Hct 32.6 L (42.0-52.0) % MCV 88 (80-90) FL MCH 29.6 (27-31) PG MCHC 33.6 (33-37) g/dL RDW Coeff of Jf 14.0 (11.5-14.5) % Plt Count 266 (140-350) 10*3/uL MPV 8.1 (7.4-12.2) FL Neutrophils % (Manual) 71 (50-80) % Band Neutrophils % 0 (0-10) % Lymphocytes % (Manual) 19 (10-50) % Monocytes % (Manual) 7 (0-12) % Eosinophils % (Manual) 2 (0-8) % Basophils % (Manual) 1 (0-1) % Metamyelocytes % Not Reportable Myelocytes % Not Reportable Promyelocytes % Not Reportable Blast Cells Not Reportable WBC Morphology Comment Normal morphology (NORM) Plt Morphology Comment Normal morphology (NORM) RBC Morph Comment Normal morphology (NORM) Crossmatch See Detail Vital Signs (24 hrs) Temp Pulse Resp BP BP Pulse Ox 07/26/17 13:00 98.0 F 78 20 121/67 92 07/26/17 08:22 98.4 F 69 20 133/78 94 07/26/17 04:12 98.1 F 69 20 119/72 92 07/26/17 00:20 99.1 F 80 16 124/75 92 07/25/17 20:07 99.8 F H 99 24 133/70 92 07/25/17 17:00 99.3 F 89 18 143/71 95 Leg with moderate amount of swelling also knee with some swelling. No evidence of infection. Motor and sensory exam is nonfocal. Assessment: Right total hip replacement with low-grade fevers of unknown origin since time of surgery question etiology but no clear evidence of active infectious process. Plan: Patient will be discharged home and continue with the physical therapy as an outpatient. Like to see the patient back in the office as scheduled in approximately 10 days. Patient will follow-up sooner for problems. Ice to the right knee. Mobilize with therapy iced hip also.
--- NOTE | 2017-07-26 15:05 | DCSUMMARY ---
Hospitalization Summary Admit Date: 07/22/17 Discharge Date: 07/26/17 Primary Diagnosis:: right total hip replacement Hospital Course: This very pleasant 61-year-old male with hypertension as one of his main medical issues along with RC arthritis. He was admitted on the for end- stage right hip arthritis, and he had that replaced by Dr. Barboza. Please see his notes regarding the surgical procedure. From a medical perspective, the patient's blood pressure stabilized and his other medical issues were not problems during the hospital stay. He did however develop a postoperative fever which was unclear in etiology. Blood cultures, urinalysis, and x-rays of the chest were negative. Ultrasound study was done of the lower extremities which did not reveal any DVT. I did a CT scan of the chest to look for pulmonary emboli and got that study out to the second-order with negative study there. It unfortunately it did not seem anything beyond third or fourth order branches. He is not hypoxic and has not had any chest pain so I doubt that this is a pulmonary emboli. He was placed on Invanz, but that was stopped prior to discharge. The CT scan showed several secondary findings/incidental findings including a pulmonary nodule in the right lung and 14 mm (patient did not smoke), pulmonary hypertension of unclear etiology, fatty liver disease, and Coronary calcifications in the left anterior descending artery. I discussed the CT scan findings with the patient and his , and answered questions. I made recommendations to get a CT scan of the chest in 3 months to reevaluate this nodule and discuss with Dr. Peacock. I also think the patient should have a sleep study done as he improves and he should also remain on a baby aspirin indefinitely after DVT prophylaxis is completed. He has RA lost 30 pounds and that will be the best treatment for his fatty liver disease and I encouraged him to continue to move forward with weight loss and congratulated him on his efforts thus far. In terms of his hip replacement, he did very well physical therapy, was on aspirin for DVT prophylaxis, and had no major issues. Today, no complaints of chest pain, shortness breath, nausea or vomiting. He is afebrile currently. His temperature maximum overnight was 99.8. This could be atelectasis, demargination of the white blood cells in the setting of the surgery and stress. Either way things seem to be improving without evidence of infection or blood clot. Assessment and Plan: 1. As per discharge assessments noted 2. Disposition: Patient is discharged home. 3. Condition on discharge, stable and improved. 4. Diet: regular diet 5. Activities: As per Dr. Barboza and physical therapy 6. Follow-Up: 1. Dr. Peacock next week 2. Follow-up with Dr. Barboza is scheduled 7. Medications at the Time of Discharge: Home Medications Medication Instructions Recorded Confirmed Type Levothyroxine Sodium [Synthroid] 200 mcg ORAL QD #90 tab 06/27/16 07/22/17 Rx Lisinopril/Hydrochlorothiazide 1 tab PO QD #90 tab 06/27/16 07/22/17 Rx [Lisinopril-Hctz 20-25 mg Tab] Aspirin EC 325 mg PO BID tab 07/26/17 Rx HYDROcodone/APAP 7.5/325 Tab 1 - 2 tab PO Q4H PRN #60 tab 07/26/17 Rx [[place] 7.5/325 Tab] Polyeth Glycol 3350 Packet 17 gm PO DAILY powd.pack 07/26/17 Rx [Miralax Packet] 8. Time, care, counseling and coordination of care for this discharge is greater than 30 minutes. Exam - Vitals Vital Signs: Vital Signs Temperature 98.0 F Temperature Source Temporal Artery Scan Pulse Rate [Apical] 88 Pulse Rate [Pulse Oximeter] 78 Pulse Rate 85 Respiratory Rate 20 Blood Pressure [Left Arm] 121/67 Blood Pressure [Right Arm] 119/72 Blood Pressure 136/80 Pulse Ox 92 Oxygen Flow Rate 2 Oxygen Delivery Method Room Air Height 6 ft Weight 273 lb 3.2 oz - General General Appearance: No Acute Distress, Cooperative - Eye Eye Exam: POSITIVE: No Scleral Icterus - ENT ENT Exam: POSITIVE: Mucous Membranes Moist - Respiratory Respiratory Exam: POSITIVE: Clear to Auscultation - Bilaterally, Breathing Non Labored - Cardiovascular Cardiovascular Exam: POSITIVE: RRR, No Murmur, No Clicks, No Gallops, No Rubs, No JVD - GI/Abdominal GI/Abdominal Exam: POSITIVE: Normal Bowel Sounds, Non Tender, Non Distended, Soft - Extremities Extremities Exam: POSITIVE: No Clubbing Present, No Edema Present, No Cyanosis Present Additional Extremities Exam Details: Right hip has some swelling, dressing is intact, clean, and dry. - Neurological Neurological Exam: POSITIVE: Alert, Oriented x 3, No Facial Droop, Speech Intact / Clear - Psychiatric Psychiatric Exam: POSITIVE: Normal Affect, Normal Mood Data Perinent Studies: Laboratory Results 07/22/17 07/22/17 07/23/17 Range/Units 10:25 10:49 05:53 WBC 13.81 H (4.8-10.8) 10^3/uL RBC 4.26 L (4.70-6.10) 10^6/uL Hgb 12.1 L (14.0-18.0) g/dL Hct 36.3 L (42.0-52.0) % MCV 85.2 (80-90) FL MCH 28.4 (27-31) PG MCHC 33.3 (33-37) g/dL RDW Std Deviation 45.9 (39-50) fL RDW Coeff of Jf 15.1 H (11.5-14.5) % Plt Count 282 (140-350) 10*3/uL MPV 10.3 (7.4-12.2) FL Neutrophils % (Manual) (50-80) % Band Neutrophils % (0-10) % Lymphocytes % (Manual) (10-50) % Monocytes % (Manual) (0-12) % Eosinophils % (Manual) (0-8) % Basophils % (Manual) (0-1) % Metamyelocytes % Myelocytes % Promyelocytes % Blast Cells WBC Morphology Comment (NORM) Plt Morphology Comment (NORM) RBC Morph Comment (NORM) ESR (0-15) MM/HR Sodium (135-145) meq/L Potassium (3.8-5.2) meq/L Chloride (98-112) meq/L Carbon Dioxide (23-33) meq/L Anion Gap (5-20) BUN (7-22) mg/dL Creatinine (0.70-1.50) mg/dL Estimated GFR (>60 ml/min/1.73m(2)) BUN/Creatinine Ratio (6-20) Glucose (78-110) mg/dL Calculated Osmolality (267-292) mOsm/kg Calcium (8.7-10.7) mg/dL C-Reactive Protein (0.0-0.9) mg/dL Ur Collection Type Clean catch urine Urine Color Yellow Urine Clarity Clear (CLEAR) Urine pH 5.0 (5.0-8.5) Ur Specific [place] 1.020 (1.005-1.030) Urine Protein Negative (NEG) mg/dl Urine Glucose (UA) Negative (NEG) mg/dL Urine Ketones Negative (NEG) Urine Occult Blood Negative (NEG) Urine Nitrate Negative (NEG) Urine Bilirubin Negative (NEG) Urine Urobilinogen 0.2 (0.2) mg/dL Ur Leukocyte Esterase Negative (NEG) Urine RBC None (NONE) /hpf Urine WBC None (NONE) Ur Squamous Epith Cells None (NONE) Ur Renal Epithelial Cell None (NONE) Urine Crystals None Urine Bacteria None (NONE) Urine Casts None Urine Mucus Rare (NONE) Urine Trichomonas None (NONE) Urine Yeast None (NONE) Ur Culture Indicated? Blood Type A NEGATIVE Antibody Screen Negative Crossmatch See Detail 07/23/17 07/24/17 07/24/17 Range/Units 05:53 05:50 05:50 WBC 17.22 H (4.8-10.8) 10^3/uL RBC 4.01 L (4.70-6.10) 10^6/uL Hgb 11.5 L (14.0-18.0) g/dL Hct 34.4 L (42.0-52.0) % MCV 85.8 (80-90) FL MCH 28.7 (27-31) PG MCHC 33.4 (33-37) g/dL RDW Std Deviation 46.6 (39-50) fL RDW Coeff of Jf 15.2 H (11.5-14.5) % Plt Count 252 (140-350) 10*3/uL MPV 10.5 (7.4-12.2) FL Neutrophils % (Manual) (50-80) % Band Neutrophils % (0-10) % Lymphocytes % (Manual) (10-50) % Monocytes % (Manual) (0-12) % Eosinophils % (Manual) (0-8) % Basophils % (Manual) (0-1) % Metamyelocytes % Myelocytes % Promyelocytes % Blast Cells WBC Morphology Comment (NORM) Plt Morphology Comment (NORM) RBC Morph Comment (NORM) ESR (0-15) MM/HR Sodium 137 137 (135-145) meq/L Potassium 4.1 4.0 (3.8-5.2) meq/L Chloride 105 104 (98-112) meq/L Carbon Dioxide 22 L 23 (23-33) meq/L Anion Gap 10 10 (5-20) BUN 17 12 (7-22) mg/dL Creatinine 0.8 0.8 (0.70-1.50) mg/dL Estimated GFR > 60 > 60 (>60 ml/min/1.73m(2)) BUN/Creatinine Ratio 21.25 H 15.00 (6-20) Glucose 92 102 (78-110) mg/dL Calculated Osmolality 285.0 283.0 (267-292) mOsm/kg Calcium 8.4 L 8.5 L (8.7-10.7) mg/dL C-Reactive Protein (0.0-0.9) mg/dL Ur Collection Type Urine Color Urine Clarity (CLEAR) Urine pH (5.0-8.5) Ur Specific [place] (1.005-1.030) Urine Protein (NEG) mg/dl Urine Glucose (UA) (NEG) mg/dL Urine Ketones (NEG) Urine Occult Blood (NEG) Urine Nitrate (NEG) Urine Bilirubin (NEG) Urine Urobilinogen (0.2) mg/dL Ur Leukocyte Esterase (NEG) Urine RBC (NONE) /hpf Urine WBC (NONE) Ur Squamous Epith Cells (NONE) Ur Renal Epithelial Cell (NONE) Urine Crystals Urine Bacteria (NONE) Urine Casts Urine Mucus (NONE) Urine Trichomonas (NONE) Urine Yeast (NONE) Ur Culture Indicated? Blood Type Antibody Screen Crossmatch 07/24/17 07/25/17 07/25/17 Range/Units 17:20 06:35 06:35 WBC 15.32 H (4.8-10.8) 10^3/uL RBC 3.85 L (4.70-6.10) 10^6/uL Hgb 11.1 L (14.0-18.0) g/dL Hct 33.3 L (42.0-52.0) % MCV 86.5 (80-90) FL MCH 28.8 (27-31) PG MCHC 33.3 (33-37) g/dL RDW Std Deviation 47.4 (39-50) fL RDW Coeff of Jf 15.3 H (11.5-14.5) % Plt Count 244 (140-350) 10*3/uL MPV 10.1 (7.4-12.2) FL Neutrophils % (Manual) (50-80) % Band Neutrophils % (0-10) % Lymphocytes % (Manual) (10-50) % Monocytes % (Manual) (0-12) % Eosinophils % (Manual) (0-8) % Basophils % (Manual) (0-1) % Metamyelocytes % Myelocytes % Promyelocytes % Blast Cells WBC Morphology Comment (NORM) Plt Morphology Comment (NORM) RBC Morph Comment (NORM) ESR 64 H (0-15) MM/HR Sodium 139 (135-145) meq/L Potassium 4.0 (3.8-5.2) meq/L Chloride 105 (98-112) meq/L Carbon Dioxide 23 (23-33) meq/L Anion Gap 11 (5-20) BUN 11 (7-22) mg/dL Creatinine 0.8 (0.70-1.50) mg/dL Estimated GFR > 60 (>60 ml/min/1.73m(2)) BUN/Creatinine Ratio 13.75 (6-20) Glucose 94 (78-110) mg/dL Calculated Osmolality 286.0 (267-292) mOsm/kg Calcium 8.4 L (8.7-10.7) mg/dL C-Reactive Protein 22.7 H (0.0-0.9) mg/dL Ur Collection Type Clean catch urine Urine Color Yellow Urine Clarity Clear (CLEAR) Urine pH 6.0 (5.0-8.5) Ur Specific [place] 1.015 (1.005-1.030) Urine Protein 30 A (NEG) mg/dl Urine Glucose (UA) Negative (NEG) mg/dL Urine Ketones Trace A (NEG) Urine Occult Blood Moderate H (NEG) Urine Nitrate Negative (NEG) Urine Bilirubin Negative (NEG) Urine Urobilinogen 0.2 (0.2) mg/dL Ur Leukocyte Esterase Negative (NEG) Urine RBC 8-10 (NONE) /hpf Urine WBC 1-3 (NONE) Ur Squamous Epith Cells Rare (NONE) Ur Renal Epithelial Cell None (NONE) Urine Crystals None Urine Bacteria Rare (NONE) Urine Casts None Urine Mucus None (NONE) Urine Trichomonas None (NONE) Urine Yeast None (NONE) Ur Culture Indicated? Culture not set Blood Type Antibody Screen Crossmatch 07/25/17 07/26/17 Range/Units 08:21 05:51 WBC 13.3 H (4.8-10.8) 10^3/uL RBC 3.7 L (4.70-6.10) 10^6/uL Hgb 11.0 L (14.0-18.0) g/dL Hct 32.6 L (42.0-52.0) % MCV 88 (80-90) FL MCH 29.6 (27-31) PG MCHC 33.6 (33-37) g/dL RDW Std Deviation (39-50) fL RDW Coeff of Jf 14.0 (11.5-14.5) % Plt Count 266 (140-350) 10*3/uL MPV 8.1 (7.4-12.2) FL Neutrophils % (Manual) 71 (50-80) % Band Neutrophils % 0 (0-10) % Lymphocytes % (Manual) 19 (10-50) % Monocytes % (Manual) 7 (0-12) % Eosinophils % (Manual) 2 (0-8) % Basophils % (Manual) 1 (0-1) % Metamyelocytes % Not Reportable Myelocytes % Not Reportable Promyelocytes % Not Reportable Blast Cells Not Reportable WBC Morphology Comment Normal morphology (NORM) Plt Morphology Comment Normal morphology (NORM) RBC Morph Comment Normal morphology (NORM) ESR (0-15) MM/HR Sodium (135-145) meq/L Potassium (3.8-5.2) meq/L Chloride (98-112) meq/L Carbon Dioxide (23-33) meq/L Anion Gap (5-20) BUN (7-22) mg/dL Creatinine (0.70-1.50) mg/dL Estimated GFR (>60 ml/min/1.73m(2)) BUN/Creatinine Ratio (6-20) Glucose (78-110) mg/dL Calculated Osmolality (267-292) mOsm/kg Calcium (8.7-10.7) mg/dL C-Reactive Protein (0.0-0.9) mg/dL Ur Collection Type Clean catch urine Urine Color Yellow Urine Clarity Clear (CLEAR) Urine pH 5.5 (5.0-8.5) Ur Specific [place] 1.020 (1.005-1.030) Urine Protein 30 (NEG) mg/dl Urine Glucose (UA) Negative (NEG) mg/dL Urine Ketones Trace (NEG) Urine Occult Blood Negative (NEG) Urine Nitrate Negative (NEG) Urine Bilirubin Negative (NEG) Urine Urobilinogen 0.2 (0.2) mg/dL Ur Leukocyte Esterase Negative (NEG) Urine RBC None (NONE) /hpf Urine WBC 1-3 (NONE) Ur Squamous Epith Cells None (NONE) Ur Renal Epithelial Cell None (NONE) Urine Crystals None Urine Bacteria None (NONE) Urine Casts None Urine Mucus Moderate (NONE) Urine Trichomonas None (NONE) Urine Yeast None (NONE) Ur Culture Indicated? Blood Type Antibody Screen [address] [facility] [place] [address] PH: DD: [phone] FAX: [phone] ~DIAGNOSTIC IMAGING REPORT~ Patient: MERVAT ALVA : 1955 Sex: M Age: 61 Exam Name: CT CTA Chest Non-Coronary [facility] Exam Date: 07/26/17 Report # : [id number] CPT Code: 10693 EMR/MR #: [id number] Ordering: MARISSA VÁZQUEZ Admiting: Faisal Barboza MD. Primary: Michael Sims MD Attending: Faisal Barboza MD. Signed CT ANGIOGRAM OF THE CHEST, 07/26/2017 11:25 AM : Clinical History: Postop fever. Previous Exam: None at this facility. Scans are performed from the base of the neck to the lower lung bases following IV administration of 75 mL of Isovue 370 was injected at a rate of 3.8 mL per second. Proprietary automated bolus tracking software was used to verify the timing of the injection. The base of the neck and thoracic inlet are normal. There are no abnormal axillary, supraclavicular, mediastinal, or hilar nodes. The heart is normal. Coronary artery calcifications are present in the proximal and middle thirds of the LAD. There is pulmonary arterial hypertension. Because of scan artifacts, evaluation of the vessels of the smaller third and all of the fourth order branches cannot be performed for determination of pulmonary embolism. No emboli are seen in the second and larger third order branches. No obvious chronic lung disease is identified to explain the pulmonary arterial hypertension. There is a 14 mm noncalcified nodule in the apical segment of the right upper lobe. No acute infiltrate or effusion is present. Both adrenal glands and the visualized portions of the pancreas and spleen are normal. There is diffuse fatty infiltration of the liver. READIN. Technically limited study because of the scan artifacts from the contrast injection. No pulmonary emboli are seen in the second and the larger third order branches to both lungs. Evaluation of the smaller third and fourth order branches cannot be performed. There is pulmonary arterial hypertension without evidence of underlying chronic lung disease. 2. There is no acute infiltrate or effusion. There is a 14 mm noncalcified nodule in the right upper lobe, probably in the more proximal portion of the apical segment. 3. Coronary artery disease manifested by calcifications of the LAD. 4. Diffuse fatty infiltration of the liver. Dictated By: 07/26/17 1337 GITA PEREZ MD. Signed By: 07/26/17 1345 GITA PEREZ MD. [address] [facility] [place] [address] PH: DD: [phone] FAX: [phone] ~DIAGNOSTIC IMAGING REPORT~ Patient: MERVAT ALVA : 1955 Sex: M Age: 61 Exam Name: US Up/Low Extremity Veins B/L Exam Date: 07/25/17 Report # : [id number] CPT Code: 07385 EMR/MR #: [id number] Ordering: Chaz York Admiting: Faisal Barboza MD. Primary: Michael Sims MD Attending: Faisal Barboza MD. Signed VENOUS DOPPLER ULTRASOUND OF BOTH LOWER EXTREMITIES, 07/25/2017 10:28 AM: Clinical History: Fever. Post operative status for total hip replacement. Right leg swelling. Previous Exam: None at this facility. Technique: 2D real-time imaging is supplemented with color Doppler ultrasound. Compression and augmentation maneuvers were performed. The deep venous system from the groin to the popliteal fossa for both legs is normal. The greater saphenous veins are also normal. There is some mild edema of the subcutaneous fat in the right lower leg. Reading: Negative venous Doppler ultrasound of both lower extremities for deep vein thrombosis. Dictated By: 07/25/17 1041 GITA PEREZ MD. Signed By: 07/25/17 1054 GITA PEREZ MD. [address] [facility] [place] [address] PH: DD: [phone] FAX: [phone] ~DIAGNOSTIC IMAGING REPORT~ Patient: MERVAT ALVA : 1955 Sex: M Age: 61 Exam Name: XR CXR 2VW PA/LAT Exam Date: 07/24/17 Report # : [id number] CPT Code: 58774 EMR/MR #: [id number] Ordering: Chaz York Admiting: Faisal Barboza MD. Primary: Michael Sims MD Attending: Faisal Barboza MD. Signed PA /LATERAL CHEST X-RAY, 07/24/2017 5:19 PM : Clinical History: Fever. Previous Exam: 12/28/2016. There is no acute soft tissue or bony abnormality. Heart size is normal. There is no acute infiltrate or effusion. The right middle lobe pneumonia present on the previous exam has resolved without sequelae. Mediastinal structures are normal. On the PA film in the right mid clavicular line and overlapping the inferior half of the sixth rib posteriorly is a 15 mm noncalcified density. This is not seen on the lateral film. In retrospect, it was present before but was obscured by overlapping anterior and posterior ribs. Readin. There is no acute infiltrate or effusion. 2. There is a 15 mm noncalcified nodule located in the right upper lung field in the mid clavicular line and overlapping the inferior half of the posterior portion of the right sixth rib. This was present in retrospect on the prior exam but has not changed. Dictated By: 07/24/17 1817 GITA PEREZ MD. Signed By: 07/24/17 1825 GITA PEREZ MD. [address] [facility] [place] [address] PH: DD: [phone] FAX: [phone] ~DIAGNOSTIC IMAGING REPORT~ Patient: MERVAT ALVA : 1955 Sex: M Age: 61 Exam Name: XR HIP COMPLETE MIN 2VW U/L Exam Date: 07/22/17 Report # : [id number] CPT Code: 47686 EMR/MR #: [id number] Ordering: FAISAL BARBOZA Admiting: Faisal Barboza MD. Primary: Michael Sims MD Attending: Faisal Barboza MD. Signed AP PELVIS AND RIGHT HIP, 07/22/2017 5:16 PM: Clinical History: Status post right total hip replacement. Osteoarthritis. Previous Exam: 06/06/2017. An AP pelvis with AP and lateral views of the replaced hip are submitted. The patient is status post right total hip replacement. The prosthetic joint articulates normally. A drain tube is in place. Reading: Status post right total hip replacement. The prosthetic joint articulates normally. Dictated By: 07/22/172038 GITA PEREZ MD. Signed By: 07/22/172044 GITA PEREZ MD. Patient Problems - Patient Problem List (1) Status post right hip replacement Current Visit: Yes Status: Acute Code(s): Z96.641 - Presence of right artificial hip joint Category: Medical (2) Nodule of right lung Current Visit: Yes Status: Acute Code(s): R91.1 - Solitary pulmonary nodule Category: Medical (3) Hypothyroidism Current Visit: Yes Status: Acute Code(s): E03.9 - Hypothyroidism, unspecified Qualifiers: Hypothyroidism type: acquired Qualified Code(s): E03.9 - Hypothyroidism, unspecified Category: Medical (4) Hypertension Current Visit: Yes Status: Acute Code(s): I10 - Essential (primary) hypertension Category: Medical
== END 2017-07-26 15:19 | disposition home or self-care (01) | DRG 470 ==
LOC: OPS 07-22 09:54 → MED/SURG 07-22 17:44
PROVIDERS: ADMIT Orthopaedic Surgery; ATTEND Orthopaedic Surgery